=== PATIENT | female | born 1945 | race Caucasian/White ===

== ENCOUNTER 2020-12-30 07:58 | Emergency (ER) | payer MEDICARE, OTHER ==
[~2020-12-30] VITALS: Ht 172.7 cm; Wt 91.7 kg
--- NOTE | 2020-12-30 08:16 | NUR ---
patient arives with a swollen tongue/angioedema that began today at 7am with no triggoring events she is aware of. it has happened 2x in past but she is unsure why. patient did not take benadryl. on monitor rails up.
[2020-12-30] MEDS ORDERED: SIMV20TA19 PO (08:26)
[2020-12-30] MEDS ORDERED: ATEN25TA PO (08:26)
[2020-12-30] MEDS ORDERED: MAGN100T3 PO (08:26)
[2020-12-30] MEDS ORDERED: POTA20PA25 PO (08:26)
[2020-12-30] MEDS ORDERED: LEVO100T5 PO (08:26)
[2020-12-30] MEDS ORDERED: CALC-73 PO (08:26)
[2020-12-30] MEDS ORDERED: ASPI-963 PO (08:26)
[2020-12-30] MEDS ORDERED: FURO20TA3 PO (08:26)
[2020-12-30] MEDS ORDERED: DEXAMETHASONE 4 MG/ML, 1ML IV ONE (09:00)
[2020-12-30] MEDS ORDERED: DIPHENHYDRAMINE 50 MG/ML, 1ML IV ONE (09:00)
[2020-12-30] MEDS ORDERED: DEXAMETHASONE 4 MG/ML, 5ML ONE (09:06)
[2020-12-30] MEDS ORDERED: DIPHENHYDRAMINE 50 MG/ML, 1ML ONE (09:06)
[2020-12-30] MEDS ORDERED: EPINEPHRINE 1 MG/ML, 1ML ONE (09:12)
--- NOTE | 2020-12-30 09:23 | NUR ---
patient in bed rails up on monitor. placed on oxygen. is continually angry and upset. trying to help and offered to immiditately start IV on patient's arrival and place on oxygen. her oxygen sat was > 95% throughout and talking in full sentences, hr 60.
[2020-12-30] MEDS ORDERED: EPINEPHRINE 1 MG/ML, 1ML IM ONE (09:30)
[2020-12-30 09:37] LABS: BASOPHILS % (AUTO) 1 % (0-1); EOSINOPHILS % (AUTO) 7 % (1-7); LYMPHOCYTES % (AUTO) 25 % (22-44); MEAN CORPUSCULAR HEMOGLOBIN 32.1 pg (27.0-34.8); MEAN CORPUSCULAR HGB CONC 33.8 g/dL (32.4-35.8); MEAN PLATELET VOLUME 7.4 fL (7.4-10.4); MONOCYTES % (AUTO) 8 % (2-9); NEUTROPHILS % (AUTO) 60 % (42-75); PLATELET COUNT 143 x10^3/uL (130-400); RED BLOOD COUNT 4.57 x10^6/uL (3.82-5.3); RED CELL DISTRIBUTION WIDTH 14.4 % (9.6-15.2)
[2020-12-30 09:50] LABS: ALBUMIN 3.1 g/dL (3.4-5.0); ANION GAP 7 mmol/L (5-15); CALCIUM 8.8 mg/dL (8.5-10.1); CHLORIDE 108 mmol/L (98-107); CREATININE 1.45 mg/dL (0.55-1.02)
[2020-12-30 11:09] VITALS: BP 172/87
--- NOTE | 2020-12-30 11:09 | NUR ---
patient states feeling improved.
== END 2020-12-30 12:56 | disposition home or self-care (01) ==
LOC: ED 08:10
DX: T78.3XXA Angioneurotic edema, initial encounter (principal); R22.0 Localized swelling, mass and lump, head; R06.02 Shortness of breath; I10 Essential (primary) hypertension; E11.9 Type 2 diabetes mellitus without complications
CPT/HCPCS: 36415; 80048; 82040; 85025; 96372; 96374; 96375; 99284; J0171; J1100; J1200